=== PATIENT | male | born 1940 | race African-American/Black ===

== ENCOUNTER 2017-01-05 18:04 | Emergency (ER) | payer OTHER, MEDICARE ==
[~2017-01-05] VITALS: Ht 182.9 cm; Wt 80.0 kg
[~2017-01-05 18:04] MED LIST: ALLO300T2 PO; ASPI325T10 PO; CALC0.25 PO; CITA20TA4 PO; DIVA500T8 PO; HALO0.5T PO; MEMA5 PO; METO100T PO; OMEP20TA39 PO; PROC90TA PO; STOO100C PO; TAB-TAB PO; VITA500C PO
[2017-01-05 18:07] VITALS: BP 176/101; PULSE 99; RESP 24; TEMP 99; O2SAT 94
[2017-01-05] MEDS ORDERED: SODIUM CHLOR 0.9% 1000 ML INJ 1,000 ML IV SCH (18:28)
[2017-01-05] MEDS ORDERED: SODIUM CHLORIDE 0.9% FLUSH 10 ML FLUSH IV FLUSH PRN (18:30)
[2017-01-05] MEDS ORDERED: ONDANSETRON HCL 4 MG/2 ML VIAL IVP ONE (18:30)
[2017-01-05 18:38] VITALS: O2SAT 97
[2017-01-05] MEDS ORDERED: MEMA1TAB PO (18:43)
[2017-01-05] MEDS ORDERED: CALC0.25 PO (18:43)
[2017-01-05] MEDS ORDERED: ASPI325T PO (18:43)
[2017-01-05] MEDS ORDERED: CITA40TA4 PO (18:43)
[2017-01-05] MEDS ORDERED: DIVA500T3 PO (18:43)
[2017-01-05] MEDS ORDERED: NIFE1TAB PO (18:43)
[2017-01-05] MEDS ORDERED: HALO0.5T PO (18:43)
[2017-01-05] MEDS ORDERED: METO100T PO (18:43)
[2017-01-05] MEDS ORDERED: MULTTAB67 PO (18:43)
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
[2017-01-05 19:06] LABS: AUTOMATED NEUTROPHIL # 9.8 TH/MM3 (1.8-7.7); BASOPHIL # 0.2 TH/MM3 (0-0.2); BASOPHIL % 1.8 % (0.0-2.0); EOSINOPHIL % 0.1 % (0.0-4.0); HEMATOCRIT 36.4 % (39.0-51.0); LYMPH % 3.7 % (9.0-44.0); LYMPHOCYTE # 0.4 TH/MM3 (1.0-4.8); MEAN CELL VOLUME 91.9 FL (80.0-100.0); MEAN CORPUSCULAR HEMOGLOBIN 29.1 PG (27.0-34.0); MEAN CORPUSCULAR HGB CONC 31.7 % (32.0-36.0); MONO % 5.8 % (0.0-8.0); NEUT % 88.6 % (16.0-70.0); PLATELET COUNT 170 TH/MM3 (150-450); RED BLOOD COUNT 3.96 MIL/MM3 (4.50-5.90); RED CELL DISTRIBUTION WIDTH 16.2 % (11.6-17.2)
[2017-01-05 19:07] LABS: HEMO FLAGS AUTO DIFF
--- NOTE | 2017-01-05 19:14 | RADRPT ---
EXAM DATE/TIME: 01/05/2017 18:56 [facility] COMPARISON: CHEST SINGLE AP, January 13, 2015, 23:46. INDICATIONS : Lower chest/ abdominal pain. MEDICAL HISTORY : Hypertension. Dementia. Gastroesophageal reflux disease. CVA. Epilepsy. Bilateral feet neuropathy. CH F. A-Fib. Renal failure. Diabetes. SURGICAL HISTORY : Tonsillectomy. Appendectomy. Brain surgery. Exploritory abdomen surgery. Foot surgery. Right hip repl acement. Right shoulder repair. ENCOUNTER: Initial ACUITY: 1 day PAIN SCORE: 8/10 LOCATION: Bilateral chest FINDINGS: The left diaphragm is poorly delineated, however this is a stable appearance either chronic or relate d to recurrent consolidation. Right lung is clear. Cardiomediastinal contours are satisfactory. CONCLUSION: Stable left base parenchymal opacity may be recurrent or chronic Maximus Sunshine MD on January 05, 2017 at 19:11 Board Certified Radiologist. This report was verified electronically.
[2017-01-05 19:27] LABS: ALT (GPT) 13 U/L (12-78)
[2017-01-05 19:29] LABS: ALKALINE PHOSPHATASE 106 U/L (45-117); TOTAL BILIRUBIN ADULT 0.5 MG/DL (0.2-1.0)
[2017-01-05 19:36] LABS: ANION GAP 10 MEQ/L (5-15); AST (GOT) 23 U/L (15-37); BICARBONATE 24.5 MEQ/L (21.0-32.0); BLOOD UREA NITROGEN 18 MG/DL (7-18); CHLORIDE 108 MEQ/L (98-107); GLOMERULAR FILTRATION RATE 62 ML/MIN (>89); INTERNATIONAL NORMALIZED RATIO 1.1 RATIO; POTASSIUM 3.5 MEQ/L (3.5-5.1); PROTHROMBIN TIME - PATIENT 12.4 SEC (9.8-11.6); SODIUM (NA) 142 MEQ/L (136-145)
[2017-01-05 19:37] LABS: APTT (PATIENT) 19.6 SEC (24.3-30.1)
[2017-01-05 20:48] LABS: BANDS 4 % (0-6); NEUTROPHIL # MANUAL DIFF 10.1 TH/MM3 (1.8-7.7); POLYS (SEG NEUTROPHILS) 88 % (16-70); SCAN/DIFF FINAL DIFF MANUAL; WBC DIFF SAMPLE 100
[2017-01-05 20:49] LABS: PLATELET ESTIMATE SMEAR NORMAL (NORMAL); PLATELET MORPHOLOGY NORMAL (NORMAL)
[2017-01-05 21:30] VITALS: BP 125/78; PULSE 79; RESP 26; O2SAT 97
--- NOTE | 2017-01-05 22:02 | RADRPT ---
EXAM DATE/TIME: 01/05/2017 20:08 [facility] COMPARISON: CT THORAX W/O CONTRAST, January 05, 2017, 20:08. INDICATIONS : Left upper quadrant pain with nausea and vomiting. ORAL CONTRAST: Partial prescribed oral contrast ingested. RADIATION DOSE: 19.43 CTDIvol (mGy) ; Reconstructed from previous dataset, no dose MEDICAL HISTORY : Dementia. Cardiovascular disease Diabetes mellitus type 2.CVA. Renal failure. SURGICAL HISTORY : Appendectomy. Left hip surgery. ENCOUNTER: Initial ACUITY: 1 day PAIN SCALE: 7/10 LOCATION: Left upper quadrant TECHNIQUE: Volumetric scanning of the abdomen and pelvis was performed. Using automated exposure control and ad justment of the mA and/or kV according to patient size, radiation dose was kept as low as reasonably achievable to obtain optimal diagnostic quality images. DICOM format image data is available electro nically for review and comparison. FINDINGS: LOWER LUNGS: Posterior diaphragmatic eventration on the left. The adjacent lung base atelectasis. LIVER: Homogeneous density without lesion. There is no dilation of the biliary tree. No calcified gallston es. SPLEEN: Normal size without lesion. PANCREAS: Within normal limits. KIDNEYS: Bilateral renal cysts. Tiny nonobstructing stone in the lateral upper pole collecting system of the l eft kidney. No evidence of hydronephrosis. ADRENAL GLANDS: Within normal limits. VASCULAR: There is no aortic aneurysm. BOWEL/MESENTERY: The stomach, small bowel, and colon demonstrate no acute abnormality. There is no free intraperitone al air or fluid. ABDOMINAL WALL: Within normal limits. RETROPERITONEUM: There is no lymphadenopathy. BLADDER: No wall thickening or mass. REPRODUCTIVE: Within normal limits. INGUINAL: There is no lymphadenopathy or hernia. MUSCULOSKELETAL: Prominent degenerative changes. Left hip pinning CONCLUSION: No acute noncontrast CT findings in the abdomen or pelvis. No specific explanation for pain. Maximus Sunshine MD on January 05, 2017 at 21:46 Board Certified Radiologist. This report was verified electronically.
--- NOTE | 2017-01-05 22:07 | RADRPT ---
EXAM DATE/TIME: 01/05/2017 20:08 [facility] COMPARISON: No previous studies available for comparison. INDICATIONS : Left lower chest pain. RADIATION DOSE: 19.34 CTDIvol (mGy) ; Combined studies - Thorax/Abdomen/Pelvis MEDICAL HISTORY : Cardiovascular disease. Dementia. Diabetes mellitus type 2. CVA. Renal failure. SURGICAL HISTORY : Appendectomy. Left hip surgery. ENCOUNTER: Initial ACUITY: 1 day PAIN SCALE: 7/10 LOCATION: Left lower chest TECHNIQUE: Volumetric scanning of the chest was performed. Using automated exposure control and adjustment of t he mA and/or kV according to patient size, radiation dose was kept as low as reasonably achievable to obtain optimal diagnostic quality images. DICOM format image data is available electronically for r eview and comparison. Follow-up recommendations for detected pulmonary nodules are based at a minimum on nodule size and pa tient risk factors according to Fleischner Society Guidelines. FINDINGS: LUNGS: Posterior diaphragmatic eventration on the left with some adjacent left lung base consolidation, pote ntially atelectasis and scarring though some degree of inflammatory infiltrate is not excluded.. PLEURAE: Minimal left pleural fluid. MEDIASTINUM: The heart and great vessels demonstrate no acute abnormality. There is no mediastinal or hilar lymph adenopathy. AXILLAE: Within normal limits. No lymphadenopathy. MUSCULOSKELETAL: Within normal limits for patient age. MISCELLANEOUS: The visualized upper abdominal organs demonstrate no acute abnormality. CONCLUSION: Mild parenchymal process at the left lung base with minimal pleural fluid. Chronicity undetermined. S ee above discussion. Maximus Sunshine MD on January 05, 2017 at 22:01 Board Certified Radiologist. This report was verified electronically.
[2017-01-05] MEDS ORDERED: PROT40TA PO (22:20)
[2017-01-05] MEDS ORDERED: ZOFR4TAB PO (22:20)
[2017-01-05] MEDS ORDERED: AZIT500T2 PO (22:23)
[2017-01-05] MEDS ORDERED: cefTRIAXone INJ 1,000 MG in SODIUM CHLORIDE 0.9% INJ 100 ML IV ONE (22:30)
[2017-01-05] MEDS ORDERED: AZITHROMYCIN INJ 500 MG in SODIUM CHLOR 0.9% 250 ML INJ 250 ML IV ONE (22:30)
[2017-01-05] MEDS ORDERED: ACETAMINOPHEN 325 MG TAB PO ONE (22:45)
--- NOTE | 2017-01-05 23:02 | EKG ---
Date Performed: 01/05/2017 Time Performed: 18:52:52 PTAGE: 76 years EKG: ATRIAL FIBRILLATION SEPTAL MYOCARDIAL INFARCTION ABNORMAL ECG PREVIOUS TRACING : 01/13/2015 23.58 Compared to prior tracing no significant change DOCTOR: Carroll Griffith Interpretating Date/Time 01/05/2017 23:01:28
[2017-01-06] VITALS: BP 126/78; PULSE 80; RESP 24; O2SAT 96
== END 2017-01-06 00:50 | disposition home or self-care (01) ==
LOC: NEPD 18:04
DX: R10.12 Left upper quadrant pain (principal); K29.00 Acute gastritis without bleeding; R11.2 Nausea with vomiting, unspecified; J18.9 Pneumonia, unspecified organism; I48.91 Unspecified atrial fibrillation; D64.9 Anemia, unspecified; E11.9 Type 2 diabetes mellitus without complications; I11.0 Hypertensive heart disease with heart failure
CPT/HCPCS: 71010; 71250; 74176; 80053; 83690; 85007; 85027; 85610; 85730; 87040; 93005; 96361; 96365; 96367; 96375; 99285; J0456; J0696; J2405; J7030; J7050

== ENCOUNTER 2017-06-23 08:46 | Emergency (ER) | payer OTHER, MEDICARE ==
[~2017-06-23] VITALS: Ht 182.9 cm; Wt 91.0 kg
[~2017-06-23 08:46] MED LIST changes: -ALLO300T2 PO; +ASPI-183 PO; -ASPI325T10 PO; +AZIT500T2 PO; -CITA20TA4 PO; +CITA40TA4 PO; +DIVA500T3 PO; -DIVA500T8 PO; +MEMA1TAB PO; -MEMA5 PO; +MULTTAB67 PO; +NIFE1TAB PO; -OMEP20TA39 PO; -PROC90TA PO; +PROT40TA PO; -STOO100C PO; -TAB-TAB PO; -VITA500C PO; +ZOFR4TAB PO
[2017-06-23 08:48] VITALS: BP 139/82; PULSE 84; RESP 18; TEMP 97.3; O2SAT 99
[2017-06-23 09:12] VITALS: BP 178/86; PULSE 74; RESP 20; TEMP 97.7; O2SAT 94
[2017-06-23 10:01] LABS: BILIRUBIN, URINE NEG (NEG); BLOOD, URINE MOD (NEG); GLUCOSE,URINE NEG (NEG); KETONE, URINE NEG (NEG); MUCUS URINE FEW /lpf (OCC); NITRITE,URINE NEG (NEG); PH, URINE 5.5 (5.0-8.5); URINE COLOR YELLOW (YELLW/STRAW); URINE LEUKOCYTE ESTERASE NEG (NEG)
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
[2017-06-23] MEDS ORDERED: PHEN0.4T PO ×2 (11:50→12:02)
== END 2017-06-23 12:52 | disposition home or self-care (01) ==
LOC: NEPC 08:46
DX: R30.0 Dysuria (principal); I69.354 Hemiplegia and hemiparesis following cerebral infarction affecting left non-dominant side; F03.90 Unspecified dementia, unspecified severity, without behavioral disturbance, psychotic disturbance, mood disturbance, and anxiety; E11.9 Type 2 diabetes mellitus without complications; I48.91 Unspecified atrial fibrillation; I11.0 Hypertensive heart disease with heart failure; I50.9 Heart failure, unspecified; G40.909 Epilepsy, unspecified, not intractable, without status epilepticus; F32.9 Major depressive disorder, single episode, unspecified; Z87.440 Personal history of urinary (tract) infections; Z79.899 Other long term (current) drug therapy
CPT/HCPCS: 51702; 81001